=== PATIENT | female | born 1990 | race Hispanic/Latino ===

== ENCOUNTER 2018-09-14 00:37 | Emergency (ER) | payer SELFPAY ==
[2018-09-14 01:32] VITALS: BP 124/84; RESP 19; TEMP 98.1; O2SAT 98
--- NOTE | 2018-09-14 03:24 | ED PDOC ---
HPI: General Adult Time Seen by Provider: 09/14/18 01:25 Chief Complaint (Nursing): Weakness/Neurological Deficit History Per: Patient History/Exam Limitations: no limitations Onset/Duration Of Symptoms: Mins Have you had recent travel within the past 21 days to any of the following countries: [place], [place], [place] or [place]?: No Current Symptoms Are (Timing): Gone Now Additional Complaint(s): 28 year old with no PMHx presenting with L pinky numbness and L jaw pain. States shortly prior to arrival she felt pain in the L side of her jaw radiating from L TMJ to the tip of her chin which resolved after Advil. She states that she also felt numbness in her L pinky as well and then felt a sense of numbness throughout her body but denies extremity weakness, slurred speech, gait disturbance, headache, or any other symptom. She admits that she searched her symptoms online and saw "stroke" as a result and became frightened and came to the [facility] Currently not complaining of finger or any numbness. PMD: Dr. Rowan Medina Past Medical History Reviewed: Historical Data, Nursing Documentation, Vital Signs Vital Signs: Last Vital Signs Temp 98.1 F 09/14/18 01:26 Pulse 82 09/14/18 01:26 Resp 19 09/14/18 01:26 BP 124/84 09/14/18 01:26 Pulse Ox 98 09/14/18 01:26 - Medical History PMH: No Chronic Diseases - Family History Family History: Denies: Stroke - Allergies Allergies/Adverse Reactions: Allergies Allergy/AdvReac Type Severity Reaction Status Date / Time No Known Allergies Allergy Verified 09/14/18 01:32 Review of Systems ROS Statement: Except As Marked, All Systems Reviewed And Found Negative ENT: Positive for: Other (Jaw pain) Neurological: Positive for: Numbness Physical Exam - Reviewed Nursing Documentation Reviewed: Yes Vital Signs Reviewed: Yes - Physical Exam Appears: Positive for: Well, Non-toxic, No Acute Distress Head Exam: Positive for: ATRAUMATIC, NORMAL INSPECTION, NORMOCEPHALIC Skin: Positive for: Normal Color, Warm, DRY Eye Exam: Positive for: EOMI, Normal appearance, PERRL ENT: Positive for: Normal ENT Inspection, Other (normal jaw exam, blunted molars) Neck: Positive for: Normal, Painless ROM Cardiovascular/Chest: Positive for: Regular Rate, Rhythm Respiratory: Positive for: CNT, Normal Breath Sounds Gastrointestinal/Abdominal: Positive for: Normal Exam, Soft Back: Positive for: Normal Inspection Extremity: Positive for: Normal ROM Neurological/Psych: Positive for: Awake, Alert, Normal Tone, Symmetric/Intact Strength, Oriented, Gait (Normal), Cerebellar Tests (Normal), microwave 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 Negative for: Motor/Sensory Deficits, Facial Droop - ECG ECG Rhythm: Positive for: Normal QRS, Normal ST Segment, Sinus Rhythm Rate: 69 O2 Sat by Pulse Oximetry: 98 Pulse Ox Interpretation: Normal Medical Decision Making Medical Decision Makin28 year old presenting with jaw pain and pinky numbness, resolved --Vitals normal, exam nonfocal, EKG normal --Symptoms do not sound like acute CVA/TIA --Patient likely suffering from TMJ related jaw pain or possibly due to teeth grinding, pinky numbness likely simple parasthesia and not central in origin --Reassurance provided to patient --Advised her to followup with her PMD --Stroke warning signs and symptoms discussed --Advised patient not to google her symptoms in the future Disposition - Clinical Impression Clinical Impression: Arm paresthesia, right - Disposition Referrals: Rowan Medina MD [Medical Doctor] - Disposition: Routine/Home Disposition Time: 01:45 Condition: GOOD Instructions: Paresthesias (DC) Forms: [employer] ([employer])
[2018-09-14 03:28] VITALS: PULSE 69
== END 2018-09-14 01:48 | disposition home or self-care (01) ==
LOC: H.ER 00:37
DX: R20.2 Paresthesia of skin (principal)